=== PATIENT | male | born 1960 | race Caucasian/White ===

== ENCOUNTER 2022-02-18 08:13 | Emergency (ER) | payer OTHER ==
[2022-02-18 08:24] VITALS: BP 103/68; PULSE 75; RESP 18; TEMP 98.8; BMI 23.7
[2022-02-18] MEDS ORDERED: DOXYCYCLINE HYCLATE 100 MG CAPSULE PO ONE ×2 (08:33→08:36)
== END 2022-02-18 08:54 | disposition home or self-care (01) ==
LOC: FER 08:13
DX: A69.20 Lyme disease, unspecified (principal)
CPT/HCPCS: 36415; 86618; 99283-25